=== PATIENT | male | born 1960 | race Caucasian/White ===

== ENCOUNTER 2020-09-28 14:19 | Outpatient (CLI) | payer OTHER ==
--- NOTE | 2020-09-28 15:36 | ULT ---
Exam: Testicular ultrasound HISTORY: Scrotal swelling COMPARISON: None TECHNIQUE: Sagittal and transverse imaging of the left and right hemiscrotum are performed. Testicula r Doppler is performed with grayscale, color-flow, Doppler imaging and spectral waveform analysis. FINDINGS: Right hemiscrotum: Testicle: Homogeneous echotexture. No intratesticular masses. Right testicle measurements: 3.3 x 2.5 x 4.3 Right epididymis: Heterogeneous echotexture Right epididymis measurements: 1.9 x 1.9 cm Hydrocele: None Left hemiscrotum: Left testicle: Homogeneous echotexture. No intratesticular masses. Left testicle measurements: 3.8 x 2.2 x 3.8 cm Left epididymis: Normal echotexture. Left epididymis measurements:1.2 x 0.8 cm Hydrocele: Small left-sided hydrocele Testicular Doppler: There is symmetric vascular flow to the left and right testicle. IMPRESSION: 1. Heterogeneous echotexture of the right epididymis. Correlate for epididymitis 2. Homogeneous echotexture of the left and right testicle, without testicular mass.
== END 2020-09-28 14:20 | disposition home or self-care (01) ==
LOC: BICULT 14:19
PROVIDERS: ATTEND Urology
DX: N50.89 Other specified disorders of the male genital organs (principal); N45.1 Epididymitis
CPT/HCPCS: 76870; 93976